=== PATIENT | male | born 1970 | race Caucasian/White ===

== ENCOUNTER → 2017-01-15 | Outpatient (REF) | payer BC, OTHER | LOC: M LAB REF 16:03 | PROVIDERS: ATTEND Internal Medicine | DX: M10.9 Gout, unspecified (principal) ==

== ENCOUNTER → 2017-02-19 | Outpatient (REF) | payer OTHER | LOC: M LAB REF 17:12 | PROVIDERS: ATTEND Internal Medicine | DX: M10.9 Gout, unspecified (principal) ==

== ENCOUNTER → 2017-05-08 | Outpatient (CLI) | payer BC, OTHER ==
--- NOTE | 2017-05-08 09:55 | REP ---
MAXILLOFACIAL CT WITHOUT CONTRAST: HISTORY: Chronic sinusitis. 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 The patient is status post bilateral partial ethmoidectomy, uncinectomy and middle nasal turbinectomy. There is complete opacification of the left frontal sinus. Mild mucosal thickening is present in the ethmoid, maxillary, and sphenoid sinuses. Minimal mucosal thickening is present in the right frontal sinus. The inferior nasal turbinates are partially paradoxical. There is minimal deviation of the nasal septum to the left. The cribriform plate, medial mayes of the orbits and optic canals are intact. The carotid canals form a segment of the posterolateral mayes of the sphenoid sinus. IMPRESSION: 1. Postoperative change as described above. 2. Sinus mucosal thickening as described above. Signed by Navin Logan MD 05/08/2017 10:00 A
== END ==
LOC: M RAD 09:19
PROVIDERS: ATTEND Otolaryngology
DX: E84.9 Cystic fibrosis, unspecified (principal); J32.0 Chronic maxillary sinusitis; J31.0 Chronic rhinitis

== ENCOUNTER → 2017-06-20 | Outpatient (REF) | payer BC, OTHER | LOC: M LAB REF 13:24 | PROVIDERS: ATTEND Internal Medicine | DX: R79.89 Other specified abnormal findings of blood chemistry (principal) ==

== ENCOUNTER → 2017-10-03 | Outpatient (REF) | payer BC, OTHER ==
[2017-10-03 15:43] LABS: URIC ACID 6.8 MG/DL (3.5-7.2)
== END ==
LOC: M LAB REF 15:13
DX: R79.89 Other specified abnormal findings of blood chemistry (principal)
CPT/HCPCS: 84550

== ENCOUNTER → 2018-06-19 | Outpatient (REF) | payer OTHER ==
[2018-06-19 18:52] LABS: URIC ACID 9.2 MG/DL (3.5-7.2)
== END ==
LOC: M LAB REF 18:32
DX: M10.9 Gout, unspecified (principal)

== ENCOUNTER → 2018-07-24 | Outpatient (REF) | payer OTHER ==
[2018-07-24 13:20] LABS: ESTIMATED AVERAGE GLUCOSE 151 MG/DL (60-110); HEMOGLOBIN A1c 6.9 %
== END ==
LOC: M LAB REF 12:23
DX: E10.649 Type 1 diabetes mellitus with hypoglycemia without coma (principal)

== ENCOUNTER → 2018-10-09 | Outpatient (REF) | payer OTHER ==
[2018-10-09 12:50] LABS: HEMOGLOBIN A1c 7.2 %
== END ==
LOC: M LABDRAW1 10:51
PROVIDERS: ATTEND Nurse Practitioner Family
DX: E10.649 Type 1 diabetes mellitus with hypoglycemia without coma (principal)

== ENCOUNTER → 2018-11-13 | Outpatient (REF) | payer OTHER | LOC: M LAB REF 16:36 | PROVIDERS: ATTEND Internal Medicine | DX: M10.9 Gout, unspecified (principal) ==

== ENCOUNTER → 2019-02-10 | Outpatient (REF) | payer OTHER ==
[2019-02-10 18:54] LABS: HEMOGLOBIN A1c 7.8 %
== END ==
LOC: M LABDRAW1 16:34
PROVIDERS: ATTEND Nurse Practitioner Family
DX: E10.649 Type 1 diabetes mellitus with hypoglycemia without coma (principal)

== ENCOUNTER → 2020-02-29 | Outpatient (REF) | payer OTHER | LOC: M LAB REF 16:10 | PROVIDERS: ATTEND Internal Medicine | DX: M10.9 Gout, unspecified (principal) ==

== ENCOUNTER → 2020-07-27 | Outpatient (CLI) | payer OTHER ==
[~2020-07-27] MED LIST: ALBU0.63 NEB; ALLE180T33 PO; BUPR-69 PO; CELE100C PO; CREO3600 PO; D31000TA2 PO; ELEX1TAB PO; LEVO200T4 PO; LOSA100T50 PO; MONT10TA4 PO; MULTCAP PO; NORV5TAB PO; NOVOINJ3 SC; OMEP-218 PO; PULM1SOL INH; SYMB16INH INH; TRAM50TA2 PO; TRAZ-252 PO; TRES1INJ2 SC
== END ==
LOC: M LABSMTC 10:06
PROVIDERS: ATTEND Anesthesiology
DX: Z01.812 Encounter for preprocedural laboratory examination (principal); Z20.828 Contact with and (suspected) exposure to other viral communicable diseases
CPT/HCPCS: C9803; U0003

== ENCOUNTER 2020-08-01 06:58 | Day surgery (SDC) | payer BC, OTHER ==
[~2020-08-01] VITALS: Ht 165.1 cm; Wt 112.9 kg
[2020-08-01] MEDS ORDERED: NS 1,000 ML IV ONE (07:00)
[2020-08-01] MEDS ORDERED: propofoL 200 MG/20 ML VIAL As Ordered ONE ×2 (07:32→07:49)
[2020-08-01] MEDS ORDERED: LIDOCAINE 2% 100MG/5ML SDV (FOR ANES.) As Ordered ONE (07:32)
--- NOTE | 2020-08-01 07:52 | ROOR ---
Patient Name: Raudel Masterson Procedure Date: 08/01/2020 7:30 AM Date of : 1970 Age: 50 Room: [facility] Gender: Male Note Status: Finalized Procedure: Total Colonoscopy to Cecum Indications: Screening for colorectal malignant neoplasm Providers: Ish Márquez MD Referring MD: Judy PEREZ MD Requesting Provider: Medicines: Monitored Anesthesia Care Complications: No immediate complications. Procedure: Pre-Anesthesia Assessment: - The heart rate, respiratory rate, oxygen saturations, blood pressure, adequacy of pulmonary ventilation, and response to care were monitored throughout the procedure. The Colonoscope was introduced through the anus and advanced to the cecum, identified by appendiceal orifice and ileocecal valve. The colonoscopy was performed without difficulty. The patient tolerated the procedure well. The quality of the bowel preparation was excellent. Findings: The perianal and digital rectal examinations were normal. Non-bleeding internal hemorrhoids were found during retroflexion. The hemorrhoids were small and Grade I (internal hemorrhoids that do not prolapse). No other significant abnormalities were identified in a careful examination of the remainder of the colon. The exam was otherwise without abnormality on direct and retroflexion views. Impression: - Non-bleeding internal hemorrhoids. - The examination was otherwise normal on direct and retroflexion views. - No specimens collected. - The exam was otherwise normal to the cecum. Recommendation: - Patient has a contact number available for emergencies. The signs and symptoms of potential delayed complications were discussed with the patient. Return to normal activities tomorrow. Written discharge instructions were provided to the patient. - High fiber diet. - Discharge patient to home. - Continue present medications. - Repeat colonoscopy in 10 years for screening purposes. - Return to referring physician. - The findings and recommendations were discussed with the patient. Ish Márquez MD Ish Márquze MD 08/01/2020 7:51:55 AM Electronically signed by Ish Márquez MD Number of Addenda: 0 Note Initiated On: 08/01/2020 7:30 AM Estimated Blood Loss: Estimated blood loss: none.
[2020-08-01 08:22] VITALS: BP 169/98
== END 2020-08-01 08:45 | disposition home or self-care (01) ==
LOC: M OPP 06:58
PROVIDERS: ATTEND Internal Medicine Gastroenterology
DX: Z12.11 Encounter for screening for malignant neoplasm of colon (principal); K64.0 First degree hemorrhoids; I10 Essential (primary) hypertension; E11.9 Type 2 diabetes mellitus without complications; E03.9 Hypothyroidism, unspecified; R12 Heartburn; J45.909 Unspecified asthma, uncomplicated; E84.9 Cystic fibrosis, unspecified; G47.33 Obstructive sleep apnea (adult) (pediatric); Z79.4 Long term (current) use of insulin; Z79.891 Long term (current) use of opiate analgesic; Z79.899 Other long term (current) drug therapy

== ENCOUNTER → 2021-03-15 | Outpatient (REF) | payer OTHER ==
[~2021-03-15] MED LIST changes: +MONT10TA10 PO; -MONT10TA4 PO
[2021-03-15 18:09] LABS: FOLATE 19.9 NG/ML; IMMUNOGLOBULIN E 13.5 IU/ML (<100); PERCENT SATURATION 35.2 % (19.7-50.0); URIC ACID 7.5 MG/DL (3.5-7.2)
[2021-03-15 18:13] LABS: INR 0.87
[2021-03-15 18:14] LABS: PARTIAL THROMBOPLASTIN TIME 25.2 SECONDS (24.2-38.5)
[2021-03-18 23:07] LABS: VITAMIN A, RETINOL LEVEL 56.7 ug/dL (20.1-62.0); VITAMIN E(ALPHA TOCOPHEROL) 23.8 mg/L (7.0-25.1); VITAMIN E(GAMMA TOCOPHEROL) 0.3 mg/L (0.5-5.5)
[2021-03-21 13:11] LABS: TOTAL 25(OH) VITAMIN D 95.8 NG/ML (30.0-100.0)
== END ==
LOC: M LAB REF 16:22
PROVIDERS: ATTEND Internal Medicine
DX: E84.9 Cystic fibrosis, unspecified (principal); E10.22 Type 1 diabetes mellitus with diabetic chronic kidney disease; N18.31 Chronic kidney disease, stage 3a; M10.9 Gout, unspecified

== ENCOUNTER → 2021-09-28 | Outpatient (REF) | payer OTHER | LOC: M LAB REF 16:13 | PROVIDERS: ATTEND Internal Medicine | DX: M10.9 Gout, unspecified (principal); R74.9 Abnormal serum enzyme level, unspecified ==

== ENCOUNTER → 2022-03-29 | Outpatient (REF) | payer OTHER ==
[~2022-03-29] MED LIST changes: -D31000TA2 PO; +LOSA100T45 PO; -LOSA100T50 PO; -MONT10TA10 PO; +MONT10TA97 PO; +OMEP-173 PO; -OMEP-218 PO; +VITA100093 PO
== END ==
LOC: M LAB REF 16:08
PROVIDERS: ATTEND Internal Medicine
DX: M10.9 Gout, unspecified (principal); E79.0 Hyperuricemia without signs of inflammatory arthritis and tophaceous disease

== ENCOUNTER → 2022-07-31 | Outpatient (CLI) | payer BC, OTHER | LOC: M WHC 10:42 | PROVIDERS: ATTEND Internal Medicine Pulmonary Disease | DX: Z13.820 Encounter for screening for osteoporosis (principal); R93.7 Abnormal findings on diagnostic imaging of other parts of musculoskeletal system; M85.851 Other specified disorders of bone density and structure, right thigh ==

== ENCOUNTER → 2022-09-05 | Outpatient (REF) | payer BC, OTHER ==
[2022-09-05 18:17] LABS: C REACTIVE PROTEIN QUANTITATIV 0.4 MG/DL (<1.0)
[2022-09-05 18:20] LABS: FERRITIN 26.3 NG/ML (10.5-307.3); IMMUNOGLOBULIN E 122.7 IU/ML (0-378)
[2022-09-05 18:22] LABS: PERCENT SATURATION 14.1 % (19.7-50.0)
[2022-09-05 19:02] LABS: INR 0.86; PARTIAL THROMBOPLASTIN TIME 27.1 SECONDS (24.8-34.2); PROTHROMBIN TIME 11.9 SECONDS (12.5-14.5)
== END ==
LOC: M LAB REF 16:30
PROVIDERS: ATTEND Internal Medicine
DX: E84.9 Cystic fibrosis, unspecified (principal)

== ENCOUNTER → 2023-03-04 | Outpatient (REF) | payer OTHER ==
[~2023-03-04] MED LIST changes: -LOSA100T45 PO; +LOSA100T46 PO
[2023-03-04 19:10] LABS: URIC ACID 7.2 MG/DL (3.7-9.2)
[2023-03-04 19:13] LABS: PERCENT SATURATION 22.8 % (19.7-50.0)
[2023-03-04 19:14] LABS: FERRITIN 28.3 NG/ML (10.5-307.3)
== END ==
LOC: M LAB REF 17:36
PROVIDERS: ATTEND Internal Medicine
DX: N18.31 Chronic kidney disease, stage 3a (principal); M10.9 Gout, unspecified

== ENCOUNTER → 2023-07-17 | Outpatient (CLI) | payer BC, OTHER | LOC: M PLAIMG 12:36 | PROVIDERS: ATTEND Physician Assistant Medical | DX: J32.0 Chronic maxillary sinusitis (principal) ==

== ENCOUNTER → 2023-09-04 | Outpatient (REF) | payer BC, OTHER | LOC: M LAB REF 16:40 | PROVIDERS: ATTEND Internal Medicine | DX: R74.01 Elevation of levels of liver transaminase levels (principal) ==

== ENCOUNTER → 2024-03-12 | Outpatient (REF) | payer OTHER, BC ==
[2024-03-12 17:19] LABS: INR 0.93; PROTHROMBIN TIME 12.2 SECONDS (12.5-14.5)
[2024-03-12 17:38] LABS: C REACTIVE PROTEIN QUANTITATIV < 0.40 MG/DL (<1.0)
[2024-03-12 17:39] LABS: IRON (FE) 93 UG/DL (65-175); PERCENT SATURATION 23.5 % (19.7-50.0); TOTAL IRON BINDING CAPACITY 395 UG/DL (250-425)
[2024-03-12 17:40] LABS: IMMUNOGLOBULIN E 31.5 IU/ML (0-378)
[2024-03-12 17:41] LABS: FOLATE > 24.0 NG/ML (>5.4)
[2024-03-12 17:42] LABS: VITAMIN B12 LEVEL 433 PG/ML (211-911)
== END ==
LOC: M LAB REF 16:14
PROVIDERS: ATTEND Internal Medicine
DX: E84.0 Cystic fibrosis with pulmonary manifestations (principal); E84.8 Cystic fibrosis with other manifestations

== ENCOUNTER → 2024-08-17 | Outpatient (CLI) | payer BC | LOC: M WHC 12:25 | PROVIDERS: ATTEND Nurse Practitioner Adult Health | DX: M85.88 Other specified disorders of bone density and structure, other site (principal); R93.7 Abnormal findings on diagnostic imaging of other parts of musculoskeletal system; E84.9 Cystic fibrosis, unspecified ==

== ENCOUNTER → 2024-09-28 | Outpatient (REF) | payer OTHER | LOC: M LAB REF 16:16 | PROVIDERS: ATTEND Internal Medicine | DX: M10.9 Gout, unspecified (principal) ==